=== PATIENT | female | born 1990 | race Caucasian/White ===

== ENCOUNTER 2019-07-17 23:51 | Emergency (ER) | payer OTHER ==
[2019-07-18] MEDS ORDERED: PROMETHAZINE 25 MG/ML VIAL ONE (00:35)
[2019-07-18] MEDS ORDERED: NA CHLORIDE 0.9% 1,000 ML ONE ×2 (00:36→02:02)
[2019-07-18] MEDS ORDERED: KETOROLAC 30 MG/ML INJ ONE (00:36)
[2019-07-18 00:44] LABS: Absolute Lymphocytes (CBC) 2.8 K/uL (0.7-4.9); Basophils % 1.4 % (0-1.3); Hematocrit 37.8 % (36.0-45.0); Lymphocytes % 17.3 % (15.3-44.8); RBC Red Blood Cell Count 5.36 M/uL (3.86-4.86)
[2019-07-18 01:06] LABS: ALT/SGPT 16 U/L (12-78); AST/SGOT 12 U/L (15-37); Albumin 3.9 g/dL (3.4-5.0); Alkaline Phosphatase 119 U/L (45-117); BUN Blood Urea Nitrogen 16 mg/dL (7-18); Bicarbonate 28 mmol/L (21-32); Bilirubin Direct < 0.1 mg/dL (0-0.2); Bilirubin Total 0.2 mg/dL (0.2-1.0); Glucose Level 88 mg/dL (74-106); Potassium 3.8 mmol/L (3.5-5.1); Protein, Total 7.9 g/dL (6.4-8.2); Sodium Level 139 mmol/L (136-145)
[2019-07-18] MEDS ORDERED: FENTANYL CITR 100 MCG/2 ML ONE (01:22)
[2019-07-18] MEDS ORDERED: HYDROMORPHONE HCL 1 MG/ML INJ ONE (02:01)
[2019-07-18] MEDS ORDERED: TAMSULOSIN 0.4 MG SR CAP ONE (02:01)
--- NOTE | 2019-07-18 03:12 | ER ---
Nurse's Notes [facility] Name: Titus Zheng Age: 29 yrs Sex: Female : 1990 Arrival Date: 07/17/2019 Time: 23:56 Bed 5 Private MD: Diagnosis: Hydronephrosis with renal and ureteral calculous obstruction Presentation: 07/18 00:00 Presenting complaint: Patient states: that for the past 2 days on and off she has been fc having left lower back pain that radiates to left groin. Also having nausea and vomiting. Transition of care: patient was not received from another setting of care. Onset of symptoms was July 16, 2019. Risk Assessment: Do you want to hurt yourself or someone else? Patient reports no desire to harm self or others. Initial Sepsis Screen: Does the patient meet any 2 criteria? No. Patient's initial sepsis screen is negative. Does the patient have a suspected source of infection? No. Patient's initial sepsis screen is negative. Care prior to arrival: Medication(s) given: Motrin, 600 mg, at 2130. 00:00 Method Of Arrival: Ambulatory fc 00:00 Acuity: TORY 3 fc Triage Assessment: 00:39 General: Appears uncomfortable, Behavior is calm, cooperative. ak1 REPORTING LEAD: 00:00 [facility] 07/15/2019 Historical: - Allergies: 00:26 PENICILLINS; fc 00:26 Sulfa (Sulfonamide Antibiotics); fc - Home Meds: 00:26 None [Active]; fc - PMHx: 00:26 None; fc - PSHx: 00:26 None; fc - Immunization history:: Last tetanus immunization: up to date Flu vaccine is not up to date. - Social history:: Smoking status: Patient uses tobacco products, denies chronic smoking, but will smoke occasionally, Patient/guardian denies using alcohol, street drugs. - Ebola Screening: : Patient negative for fever greater than or equal to 101.5 degrees Fahrenheit, and additional compatible Ebola Virus Disease symptoms Patient denies exposure to infectious person Patient denies travel to an Ebola-affected area in the 21 days before illness onset. Screenin:00 Abuse screen: Denies threats or abuse. Nutritional screening: No deficits noted. Tuberculosis screening: No symptoms or risk factors identified. Fall Risk None identified. Assessment: 01:56 General: Appears uncomfortable, Behavior is calm, cooperative. ak1 01:57 Pain: Complains of pain in left mid back and left upper quadrant. Neuro: Level of ak1 Consciousness is awake, alert, obeys commands, Oriented to person, place, time, situation, Visual Basic Programmer are equal bilaterally Moves all extremities. Speech is normal. Cardiovascular: No deficits noted. Respiratory: Airway is patent Respiratory effort is even, unlabored. GI: No signs and/or symptoms were reported involving the gastrointestinal system. : Reports pain in left flank(s), in lower back. EENT: No signs and/or symptoms were reported regarding the EENT system. Derm: No signs and/or symptoms reported regarding the dermatologic system. Musculoskeletal: No signs and/or symptoms reported regarding the musculoskeletal system. 02:07 Reassessment: Patient appears in no apparent distress at this time. No changes from ak1 previously documented assessment. Patient states symptoms have not improved. 02:43 General: Appears uncomfortable, Behavior is calm, cooperative. ak1 Vital Signs: 00:00 BP 134 / 94; Pulse 80; Resp 18; Temp 98.6(O); Pulse Ox 100% on R/A; Weight 81.65 kg fc (R); Height 5 ft. 1 in. (154.94 cm) (R); Pain 10/10; 01:56 BP 102 / 68; Pulse 81; Pulse Ox 100% on R/A; ak1 02:07 BP 120 / 88; Pulse 83; Resp 16; Temp 98.6; Pulse Ox 100% on R/A; ak1 02:43 BP 99 / 69; Pulse 85; Resp 16; Pulse Ox 99% on R/A; ak1 03:37 BP 116 / 87; Pulse 90; Resp 18; Temp 98.5; Pulse Ox 99% on R/A; ak1 00:00 Body Mass Index 34.01 (81.65 kg, 154.94 cm) ED Course: 07/17 23:56 Patient arrived in ED. es 07/18 00:00 Arm band placed on Patient placed in an exam room, on a stretcher. fc 00:00 Patient has correct armband on for positive identification. Placed in gown. Bed in low fc position. Call light in reach. Pulse ox on. NIBP on. 00:00 No provider procedures requiring assistance completed. fc 00:21 Inserted saline lock: 20 gauge in right antecubital area, using aseptic technique. fc Blood collected. 00:22 Jess Dailey FNP-C is [facility]. snw 00:22 Tex Wu MD is Attending Physician. snw 00:24 Triage completed. fc 00:40 Samantha Padgett, RN is Primary Nurse. ak1 01:00 CT Stone Protocol In Process Unspecified. EDMS 03:44 Patient transferred, IV remains in place. ak1 Administered Medications: 00:39 Drug: NS 0.9% 1000 ml Route: IV; Rate: 1 bolus; Site: right antecubital; ak1 01:56 Follow up: IV Status: Completed infusion; IV Intake: 1000ml ak1 00:39 Drug: TORadol - Ketorolac 15 mg Route: IVP; Site: right antecubital; ak1 01:56 Follow up: Response: No adverse reaction ak1 00:39 Drug: Phenergan 12.5 mg Route: IVP; Site: right antecubital; ak1 01:55 Follow up: Response: No adverse reaction ak1 01:25 Drug: fentaNYL (PF) 50 mcg {Note: Rass score 0.} Route: IVP; Site: right antecubital; jb4 01:56 Follow up: Response: No adverse reaction ak1 02:06 Drug: Dilaudid 1 mg Route: IM; Site: left gluteus; ak1 02:43 Follow up: Response: No adverse reaction ak1 02:07 Drug: Flomax 0.4 mg Route: PO; ak1 02:43 Follow up: Response: No adverse reaction ak1 02:07 Drug: NS 0.9% 1000 ml Route: IV; Rate: 1 bolus; Site: right antecubital; ak1 03:34 Follow up: IV Status: Completed infusion; IV Intake: 1000ml ak1 03:45 Drug: Zofran 4 mg Route: IVP; Site: right antecubital; ak1 03:45 Follow up: Response: No adverse reaction ak1 Intake: 01:56 IV: 1000ml; Total: 1000ml. ak1 03:34 IV: 1000ml; Total: 2000ml. ak1 Outcome: 03:12 ER care complete, transfer ordered by . snw 03:44 [place]red by ground [facility] [place] [facility] [facility] [place]. ak1 X-rays sent w/ patient. Note: Report given to Denise ALCOCER for 16 tower room 1615 03:44 Condition: stable 03:44 Instructed on the need for transfer. 04:26 Patient left the ED. ak1 Signatures: Dispatcher [employer] EDJess Rodriguez, INFORMATION SECURITY DIRECTOR-C INFORMATION SECURITY DIRECTOR-Csnw Belinda Mccoy Felicia RN RN Samantha Padgett RN RN ak1 Андрей Soler RN RN jb4 Corrections: (The following items were deleted from the chart) 00:25 00:25 Abuse screen: Denies threats or abuse. [facility] 00:25 00:25 Nutritional screening: No deficits noted. [facility] 00:25 00:25 Tuberculosis screening: No symptoms or risk factors identified. [facility] 00:25 00:25 Fall Risk None identified. [facility] 03:04 02:07 NS 0.9% 1000 ml IV at 1 bolus in right antecubital ak1 snw
--- NOTE | 2019-07-18 03:12 | EDPHYS ---
Physician Documentation [facility] Name: Titus Zheng Age: 29 yrs Sex: Female : 1990 Arrival Date: 07/17/2019 Time: 23:56 Bed 5 Private MD: ED Physician Tex Wu HPI: 07/18 00:37 This 29 yrs old Female presents to ER via Ambulatory with complaints of Flank snw Pain. 00:37 The patient complains of pain in the left mid back. The pain radiates to the left upper snw quadrant. Onset: The symptoms/episode began/occurred suddenly, just prior to arrival. Associated signs and symptoms: Pertinent positives: nausea, vomiting. Severity of pain: At its worst the pain was moderate severe. The patient has experienced a previous episode, approximately 2 days ago, but today's symptoms are worse. It is unknown whether or not the patient has recently seen a physician. no hx of renal calculi, pt does not know if she has blood in her urine as she is currently having her menses. 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 - Social history:: Smoking status: Patient uses tobacco products, denies chronic smoking, but will smoke occasionally, Patient/guardian denies using alcohol, street drugs. - Ebola Screening: : Patient negative for fever greater than or equal to 101.5 degrees Fahrenheit, and additional compatible Ebola Virus Disease symptoms Patient denies exposure to infectious person Patient denies travel to an Ebola-affected area in the 21 days before illness onset. ROS: 00:37 Constitutional: Negative for fever, chills, and weight loss, Eyes: Negative for injury, snw pain, redness, and discharge, ENT: Negative for injury, pain, and discharge, Neck: Negative for injury, pain, and swelling, Cardiovascular: Negative for chest pain, palpitations, and edema, Respiratory: Negative for shortness of breath, cough, wheezing, and pleuritic chest pain, : Negative for injury, bleeding, discharge, and swelling, MS/Extremity: Negative for injury and deformity, Skin: Negative for injury, rash, and discoloration, Neuro: Negative for headache, weakness, numbness, tingling, and seizure. 00:37 Abdomen/GI: Positive for abdominal pain, nausea and vomiting. 00:37 Back: Positive for flank pain, on the left. Exam: 00:36 Constitutional: This is a well developed, well nourished patient who is awake, alert, snw and in no acute distress. Head/Face: Normocephalic, atraumatic. Eyes: Pupils equal round and reactive to light, extra-ocular motions intact. Lids and lashes normal. Conjunctiva and sclera are non-icteric and not injected. Cornea within normal limits. Periorbital areas with no swelling, redness, or edema. ENT: Nares patent. No nasal discharge, no septal abnormalities noted. Tympanic membranes are normal and external auditory canals are clear. Oropharynx with no redness, swelling, or masses, exudates, or evidence of obstruction, uvula midline. Mucous membranes moist. Neck: Trachea midline, no thyromegaly or masses palpated, and no cervical lymphadenopathy. Supple, full range of motion without nuchal rigidity, or vertebral point tenderness. No Meningismus. Chest/axilla: Normal chest wall appearance and motion. Nontender with no deformity. No lesions are appreciated. Cardiovascular: Regular rate and rhythm with a normal S1 and S2. No gallops, murmurs, or rubs. Normal PMI, no JVD. No pulse deficits. Respiratory: Lungs have equal breath sounds bilaterally, clear to auscultation and percussion. No rales, rhonchi or wheezes noted. No increased work of breathing, no retractions or nasal flaring. 00:36 Back: No spinal tenderness. No costovertebral tenderness. Full range of motion. Skin: Warm, dry with normal turgor. Normal color with no rashes, no lesions, and no evidence of cellulitis. MS/ Extremity: Pulses equal, no cyanosis. Neurovascular intact. Full, normal range of motion. Neuro: Awake and alert, GCS 15, oriented to person, place, time, and situation. Cranial nerves II-XII grossly intact. Motor strength 5/5 in all extremities. Sensory grossly intact. Cerebellar exam normal. Normal gait. Psych: Awake, alert, with orientation to person, place and time. Behavior, mood, and affect are within normal limits. 00:36 Abdomen/GI: Palpation: mild abdominal tenderness, in the left upper quadrant. 00:36 Back: CVA tenderness, that is moderate, is noted on the left. Vital Signs: 00:00 BP 134 / 94; Pulse 80; Resp 18; Temp 98.6(O); Pulse Ox 100% on R/A; Weight 81.65 kg fc (R); Height 5 ft. 1 in. (154.94 cm) (R); Pain 10/10; 01:56 BP 102 / 68; Pulse 81; Pulse Ox 100% on R/A; ak1 02:07 BP 120 / 88; Pulse 83; Resp 16; Temp 98.6; Pulse Ox 100% on R/A; ak1 02:43 BP 99 / 69; Pulse 85; Resp 16; Pulse Ox 99% on R/A; ak1 03:37 BP 116 / 87; Pulse 90; Resp 18; Temp 98.5; Pulse Ox 99% on R/A; ak1 00:00 Body Mass Index 34.01 (81.65 kg, 154.94 cm) fc MDM: 00:23 Patient medically screened. snw 03:04 Data reviewed: vital signs, nurses notes, lab test result(s), radiologic studies, CT snw scan. Data interpreted: Pulse oximetry: on room air is 99 %. Interpretation: normal. Counseling: I had a detailed discussion with the patient and/or guardian regarding: the historical points, exam findings, and any diagnostic results supporting the discharge/admit diagnosis, lab results, radiology results, the need to transfer to another facility, [facility] does not immediately have the required specialist. Physician consultation: Dr Mathews was called at 03:10, was contacted at 03:10, regarding regarding transfer, to [facility]. Dr. Mathews kindly accepts pt in transfer, awaiting UA. 07/18 00:31 Order name: Basic Metabolic Panel; Complete Time: 01:07 snw 07/18 00:31 Order name: CBC with Diff snw 07/18 00:31 Order name: Hepatic Function; Complete Time: 01:07 snw 07/18 00:31 Order name: Test, Serum; Complete Time: 01:07 snw 07/18 03:25 Order name: Urine Dipstick--Ancillary (enter results) ds4 07/18 03:25 Order name: Urine --Ancillary (enter results) ds4 07/18 00:31 Order name: CT Stone Protocol snw 07/18 00:31 Order name: Labs collected and sent; Complete Time: 00:39 snw Administered Medications: 00:39 Drug: NS 0.9% 1000 ml Route: IV; Rate: 1 bolus; Site: right antecubital; ak1 01:56 Follow up: IV Status: Completed infusion; IV Intake: 1000ml ak1 00:39 Drug: TORadol - Ketorolac 15 mg Route: IVP; Site: right antecubital; ak1 01:56 Follow up: Response: No adverse reaction ak1 00:39 Drug: Phenergan 12.5 mg Route: IVP; Site: right antecubital; ak1 01:55 Follow up: Response: No adverse reaction ak1 01:25 Drug: fentaNYL (PF) 50 mcg {Note: Rass score 0.} Route: IVP; Site: right antecubital; jb4 01:56 Follow up: Response: No adverse reaction ak1 02:06 Drug: Dilaudid 1 mg Route: IM; Site: left gluteus; ak1 02:43 Follow up: Response: No adverse reaction ak1 02:07 Drug: Flomax 0.4 mg Route: PO; ak1 02:43 Follow up: Response: No adverse reaction ak1 02:07 Drug: NS 0.9% 1000 ml Route: IV; Rate: 1 bolus; Site: right antecubital; ak1 03:34 Follow up: IV Status: Completed infusion; IV Intake: 1000ml ak1 03:45 Drug: Zofran 4 mg Route: IVP; Site: right antecubital; ak1 03:45 Follow up: Response: No adverse reaction ak1 Disposition: 06:48 Co-signature as Attending Physician, Tex Wu MD. rn Disposition: 07/18/19 03:12 Transfer ordered to [facility]. Diagnosis is Hydronephrosis with renal and ureteral calculous obstruction. - Reason for transfer: Specialty. - Accepting physician is Dr. Mathews. - Condition is Stable. - Problem is new. - Symptoms are unchanged. Signatures: Dispatcher [employer] EDMS Jess Dailey, VAC PRESS OPERATOR-C VAC PRESS OPERATOR-Csnw Cande Langford, RN RN Tex Black MD MD rn Krenek, Amber, RN RN ak1 Андрей Soler RN RN [email or web address] Corrections: (The following items were deleted from the chart) 04:26 03:12 07/18/2019 03:12 Transfer ordered to [facility]. Diagnosis is ak1 Hydronephrosis with renal and ureteral calculous obstruction. Reason for transfer: Specialty. Accepting physician is Dr. Mathews. Condition is Stable. Problem is new. Symptoms are unchanged. snw
[2019-07-18] MEDS ORDERED: ONDANSETRON 4 MG/2 ML VIAL ONE (03:36)
[2019-07-18 03:55] LABS: Urine Blood 3+ (NEG); Urine Glucose NEGATIVE (NEG); Urine Protein 1+ (NEG); Urine pH 5.5 (5.0-7.0)
[2019-07-18 04:36] VITALS: O2SAT 99
[2019-07-18 04:38] VITALS: BP 116/87; TEMP 98.5
[2019-07-18 05:26] LABS: Anisocytosis 1+; Blood Morphology Comment NOTED (NOT SEEN); Platelet Estimate ADEQ; Urine White Blood Cell Casts OK
--- NOTE | 2019-07-19 12:35 | RAD REPORT ---
EXAM DESCRIPTION: CT - Stone Protocol - 07/18/2019 4:24 am CLINICAL HISTORY: FLANK PAIN COMPARISON: None Available. TECHNIQUE: CT of the abdomen and pelvis without IV contrast. Evaluation of the solid organs and vasc ulature is suboptimal due to lack of IV contrast. FINDINGS: Lung Bases: The visualized lung bases are clear. Bones: No destructive bone lesions identified. Abdomen: Liver: The liver has normal size and density. Gallbladder: No calcified gallstones. Spleen, Pancreas, and Adrenal Glands: The spleen, pancreas, and adrenal glands are unremarkable. Kidneys: There is a 5 mm obstructing calculus in the mid left ureter producing moderate left hydronep hrosis. Multiple punctate bilateral nonobstructing nephrolithiasis. Vasculature: The aorta and IVC have normal caliber and position. Stomach: The stomach and duodenum have normal course. Other: No free intraperitoneal air. No free fluid or lymphadenopathy. Pelvis: Bladder: Urinary bladder is unremarkable. Bowel: No dilated loops of large or small bowel. Appendix: Normal appendix. Pelvis: Uterus is not enlarged. IMPRESSION: 1. There is a 0.5 cm obstructing calculus in the left mid ureter producing moderate left hydronephrosis. 2. Multiple punctate bilateral nonobstructing nephrolithiasis. This exam was performed according to our departmental dose-optimization program, which includes autom ated exposure control, adjustment of the mA and/or kV according to patient size and/or use of iterati ve reconstruction technique. Electronically signed by: Talib Devi 07/18/2019 1:11 AM ELECTRIC POWER SUPERINTENDENT Due to temporary technical issues with the PACS/Fluency reporting system, reports are being signed by the in house radiologist as a courtesy to ensure prompt reporting. The interpreting radiologist is f eduardly responsible for the content of the report.
== END 2019-07-18 04:26 | disposition short-term general hospital (02) ==
LOC: ER 23:51
DX: N13.2 Hydronephrosis with renal and ureteral calculous obstruction (principal); Z72.0 Tobacco use; Z88.0 Allergy status to penicillin; Z88.2 Allergy status to sulfonamides
CPT/HCPCS: 96361; 85025; 80048; 36415; 84703; 81025; 80076; 81003; 76377; 74176; 96375; 96372; 96374; 99285; J2550; J3010; J1170; J7030 ×2; J2405